=== PATIENT | male | born 1960 | race African-American/Black ===

== ENCOUNTER 2017-02-13 07:56 | Emergency (ER) | payer MEDICARE, MEDICAID ==
[~2017-02-13] VITALS: Ht 180.3 cm; Wt 104.3 kg
[2017-02-13 07:59] VITALS: BP 124/79
[2017-02-13] MEDS ORDERED: DiphenhydrAMINE 50mg/ml Inj IM ONE (08:15)
[2017-02-13] MEDS ORDERED: Ketorolac 60mg Inj IM ONE (08:15)
--- NOTE | 2017-02-13 08:15 | Emergency Room Report ---
History of Present Illness General Chief Complaint: General Complaint Source: Patient, Caregiver Present Illness HPI Patient is a 56-year-old male presented after increased difficulty moving his jaw. Patient prior history of similar symptoms many years ago. The patient denies recent trauma however he has a seizure disorder. Patient had prior head trauma many years ago. He takes Keppra as well as Tegretol for his seizures. He had been taking multiple medications for seizure control and had not been having seizures for the past few months. 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 He denies recent fever. He reported having a mild sore throat. Allergies: Coded Allergies: No Known Allergies (Unverified , 02/13/17) Patient History Past Medical History: see triage record, seizures Reviewed Nursing Documentation: PMH: Agreed, PSxH: Agreed Nursing Documentation-PMH Past Medical History: No History, Except For Hx Neurological Problems: Yes - HX OF BRAIN INJURY Hx Seizures: Yes Review of Systems All Other Systems: negative except mentioned in HPI Physical Exam Vital Signs Date Time Temp Pulse Resp B/P Pulse Ox O2 Delivery O2 Flow Rate FiO2 02/13/17 07:59 97.3 73 20 124/79 96 Room Air General Appearance: well appearing, no apparent distress, alert, GCS 15 Head: normocephalic, atraumatic ENT: hearing grossly normal, normal voice, other - decreased range of motion, no mandibular swelling, able to move jaw side to side. Neck: full range of motion, supple Respiratory: no respiratory distress, speaking full sentences Musculoskeletal: no calf tenderness Neurologic: normal gait Psychiatric: mood/affect normal Skin: no rash Medical Decision Making Diagnostic Impression: Primary Impression: Dental infection ER Course The patient is a 52-year-old male presented after having difficulty opening his mouth. Differential diagnosis included wasn't limited to jaw dislocation, tetanus, dystonic reaction, dental infection and among others. Because of complexity of patient's case laboratory testing and imaging studies were ordered. Laboratory testing showed normal white blood count. Patient was noted to have no change in symptoms after IV Benadryl. A CT of the facial bones read by radiology showed a left lower dental caries with possible tooth abscess without evidence of the mandibular or temporomandibular joint abnormality. The patient was given IM penicillin for a dental infection. The patient was advised followup with a dentist. Patient is advised to return if you having worsening pain, difficulty swallowing trouble breathing or other concerns. Last Vital Signs Date Time Temp Pulse Resp B/P Pulse Ox O2 Delivery O2 Flow Rate FiO2 02/13/17 07:59 97.3 73 20 124/79 96 Room Air Status: improved Disposition: HOME, SELF-CARE Condition: Stable Scripts Ibuprofen* (MOTRIN*) 600 Mg Tablet 600 MG ORAL Q8H Y for For Pain, #30 TAB 0 Refills Prov: Marcus Buckner 02/13/17 Marcus Buckner February 13, 2017 08:15
[2017-02-13] MEDS ORDERED: LEVETIRACETAM500 MG ORAL ×2 (08:31→08:33)
[2017-02-13] MEDS ORDERED: CARBAMAZEPINE200 MG ORAL ×2 (08:33)
[2017-02-13] MEDS ORDERED: MULTIVITAMINS1 EAC8 ORAL (08:33)
[2017-02-13] MEDS ORDERED: VITAMIN D22000 UNIT PO (08:35)
--- NOTE | 2017-02-13 09:30 | Diagnostic Imaging Report ---
Indications: Mandibular pain, decreased range of motion: History seizure disorder Technique: Continuous helical CT imaging of the face was performed with automatic exposure control on a Siemens sensation [address] scanner. Axial and coronal images were reconstructed at 3 mm slice thickness. CTDI volume(s): 28.2 mGy Total DLP: 59 mGy-cm Findings: Comparison: None No fracture identified. Bilateral temporomandibular joints normally aligned and without significant degenerative change or other chronic abnormality. Paranasal sinuses, bilateral mastoid air cells clear. Orbital anatomy intact bilaterally. Superficial soft tissues unremarkable. Left lower second molar demonstrates defect in crown, lucency surrounding its root, and defect in the overlying mandibular cortex. IMPRESSION: Left lower dental caries as described with probable tooth abscess No other evidence of mandibular/temporomandibular joint abnormality This correlates with [facility] preliminary report.
[2017-02-13 10:15] VITALS: BP 115/76
[2017-02-13] MEDS ORDERED: Bicillin LA 1.2 Million Units Syr IM ONE (10:45)
[2017-02-13] MEDS ORDERED: IBUPROFEN600 MG ORAL (10:55)
[2017-02-13 11:27] VITALS: BP 116/77
== END 2017-02-13 11:33 | disposition home or self-care (01) ==
LOC: EMR 08:24
DX: K04.7 Periapical abscess without sinus (principal); Z87.820 Personal history of traumatic brain injury; Z86.69 Personal history of other diseases of the nervous system and sense organs
CPT/HCPCS: 70486; 96372; 99284; J0570; J1200; J0561

== ENCOUNTER 2018-08-21 15:40 | Emergency (ER) | payer MEDICARE, MEDICAID ==
[~2018-08-21] VITALS: Ht 180.3 cm; Wt 113.4 kg
[~2018-08-21 15:40] MED LIST: CARBAMAZEPINE200 MG ORAL; IBUPROFEN600 MG ORAL; LEVETIRACETAM500 MG ORAL; MULTIVITAMINS1 EAC8 ORAL; VITAMIN D22000 UNIT PO
[2018-08-21] MEDS ORDERED: FUROSEMIDE40 MG ORAL (16:01)
[2018-08-21] MEDS ORDERED: SPIRONOLACTONE25 MG ORAL (16:01)
[2018-08-21] MEDS ORDERED: KEPPRA1000 MG ORAL (16:01)
[2018-08-21] MEDS ORDERED: VITAMIN D22000 UNIT PO (16:01)
[2018-08-21] MEDS ORDERED: FUROSEMIDE20 M1 ORAL (16:01)
--- NOTE | 2018-08-21 17:09 | Diagnostic Imaging Report ---
Indications: Altered mental status Technique: Spiral acquisitions obtained through the brain. Angled axial and coronal 5 x 5 mm slices were reconstructed. Total dose length product 1432.39 mGycm. CTDI vol(s) 70.38 mGy. 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 There is also a small focus of encephalomalacia in the high right parasagittal frontal lobe. Another focus of cortical encephalomalacia is seen in the high parasagittal posterior frontal lobe, and another in the high lateral left parietal cortex. There is mild age-related enlargement of the ventricles. There is suggestion of encephalomalacia of the left temporal lobe with ex vacuo dilatation of the temporal horn of the left lateral ventricle. No acute intracranial hemorrhage nor edema, mass effect, nor midline shift. Visualized orbits are unremarkable. There is ethmoid sinus disease. The mastoids are clear. The calvarium is intact. Findings: Negative for acute intracranial bleed or mass effect Multifocal encephalomalacia, as described above, consistent with prior insult either ischemic or otherwise. Correlate with clinical history Ethmoid sinus mucosal disease incidentally noted Impression: The CT scanner at [facility] is accredited by the [employer] and the scans are performed using protocols designed to limit radiation exposure to as low as reasonably achievable to attain images of sufficient resolution adequate for diagnostic evaluation.
[2018-08-21 17:11] VITALS: BP 118/72
[2018-08-21 17:20] LABS: EOSINOPHILS % (AUTO) 2.5 % (0.0-3.0); HEMATOCRIT 44.5 % (42.0-52.0); HEMOGLOBIN 14.4 G/DL (14.2-18.0); LYMPHOCYTES % (AUTO) 30.8 % (20.0-45.0); MEAN CORPUSCULAR VOLUME 83 FL (80-99); MONOCYTES % (AUTO) 9.5 % (1.0-10.0); NEUTROPHILS % (AUTO) 56.2 % (45.0-75.0); PLATELET COUNT 209 K/UL (150-450); RED BLOOD COUNT 5.33 M/UL (4.70-6.10); RED CELL DISTRIBUTION WIDTH 12.2 % (11.6-14.8); WHITE BLOOD COUNT 6.3 K/UL (4.8-10.8)
[2018-08-21 17:42] LABS: AMMONIA 23 umol/L (11-32); ANION GAP 7 mmol/L (5-15); BLOOD UREA NITROGEN 13 mg/dL (7-18); CALCIUM 8.2 MG/DL (8.5-10.1); CARBON DIOXIDE 30 MMOL/L (21-32); CHLORIDE 104 MMOL/L (98-107); CREATININE 1.2 MG/DL (0.55-1.30); POTASSIUM 4.2 MMOL/L (3.5-5.1); SODIUM 141 MMOL/L (136-145)
[2018-08-21 17:45] LABS: ALANINE AMINOTRANSFERASE 31 U/L (12-78); ALBUMIN 3.4 G/DL (3.4-5.0); ALBUMIN/GLOBULIN RATIO 0.8 (1.0-2.7); ALKALINE PHOSPHATASE 94 U/L (46-116); ASPARTATE AMINO TRANSFERASE 20 U/L (15-37); BILIRUBIN,TOTAL 0.2 MG/DL (0.2-1.0)
[2018-08-21] MEDS ORDERED: VITAMIN D250000 UNI1 ORAL (18:01)
[2018-08-21 18:05] VITALS: BP 109/74
[2018-08-21 18:24] VITALS: BP 109/74
--- NOTE | 2018-08-21 18:30 | Emergency Room Report ---
History of Present Illness General Chief Complaint: Generalized Weakness Source: Family Member Present Illness HPI 58-year-old male presents ED for evaluation. Sister at bedside states that patient has been increasingly drowsy for the last 2 weeks with very low energy. States that prior to onset of symptoms he was "getting over a cold". Was seen by PMD at that time and flu shot was deferred until patient recovered. Patient states he feels tired. Denies any headache. Denies chest pain or shortness of breath. Denies fevers or chills. History of seizures and is on Keppra and Tegretol. States there is no change to his dosages. Denies drug use or alcohol use. No other aggravating relieving factors. Denies any other associated symptoms Allergies: Coded Allergies: No Known Allergies (Unverified , 02/13/17) Patient History Past Medical History: seizures Past Surgical History: other - TBI Pertinent Family History: none Social History: Denies: smoking, alcohol use, drug use Immunizations: UTD Reviewed Nursing Documentation: PMH: Agreed; PSxH: Agreed Nursing Documentation-PMH Past Medical History: No History, Except For Hx Neurological Problems: Yes - HX OF BRAIN INJURY Hx Seizures: Yes Review of Systems All Other Systems: negative except mentioned in HPI Physical Exam Vital Signs Date Time Temp Pulse Resp B/P (MAP) Pulse Ox O2 Delivery O2 Flow Rate FiO2 08/21/18 15:54 97.2 70 14 118/72 97 Room Air Sp02 EP Interpretation: reviewed, normal General Appearance: no apparent distress, alert, GCS 15, non-toxic, lethargic Head: normocephalic, atraumatic Eyes: bilateral eye normal inspection, bilateral eye PERRL ENT: hearing grossly normal, normal pharynx, no angioedema, normal voice Neck: full range of motion, supple/symm/no masses Respiratory: chest non-tender, lungs clear, normal breath sounds, speaking full sentences Cardiovascular #1: regular rate, rhythm, no edema Cardiovascular #2: 2+ carotid (R), 2+ carotid (L), 2+ radial (R), 2+ radial (L) , 2+ dorsalis pedis (R), 2+ dorsalis pedis (L) Gastrointestinal: normal bowel sounds, non tender, soft, non-distended, no guarding, no rebound Rectal: deferred Genitourinary: normal inspection, no CVA tenderness Musculoskeletal: back normal, gait/station normal, normal range of motion, non- tender Neurologic: oriented x3, responsive, motor strength/tone normal, sensory intact , speech normal, other - lethargy Psychiatric: judgement/insight normal, memory normal, mood/affect normal, no suicidal/homicidal ideation Reflexes: 3+ bicep (R), 3+ bicep (L), 3+ tricep (R), 3+ tricep (L), 3+ knee (R) , 3+ knee (L) Skin: normal color, no rash, warm/dry, well hydrated Lymphatic: no adenopathy Medical Decision Making Diagnostic Impression: Primary Impression: Lethargy Additional Impression: Episode of generalized weakness ER Course Hospital Course 58-year-old male presents with increased lethargy 2 weeks. h/o seizures Differential diagnoses include: Psychosis, EtOH, drug abuse Clinical course patient placed on stretcher. On residential monitor. After initial history and physical ordered labs, IV fluids, CT brain. Labs reviewed-electrolytes okay, no leukocytosis, hemoglobin/hematocrit stable, ETOH negative, UDS negative, ammonia ok. 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 Vital stable. Normal lab workup. CT negative. I offered option for admission but patient and family state that they would like to be discharged and will follow-up with PMD. i. I feel this is a highly complex case requiring extensive working including EKG/Rhythm strip, Xray/CT/US, Blood/urine lab work, repeat exams while in ED, and administration of strong opiates/narcotics for pain control, admission to hospital or close patient follow up. Diagnosis - lethargy, episode of generalized weakness Stable and discharged to home. Followup with PMD. Return to ED if symptoms recur or worsen Labs Test 08/21/18 17:00 08/21/18 17:09 White Blood Count 6.3 K/UL (4.8-10.8) Red Blood Count 5.33 M/UL (4.70-6.10) Hemoglobin 14.4 G/DL (14.2-18.0) Hematocrit 44.5 % (42.0-52.0) Mean Corpuscular Volume 83 FL (80-99) Mean Corpuscular Hemoglobin 27.0 PG (27.0-31.0) Mean Corpuscular Hemoglobin Concent 32.3 G/DL (32.0-36.0) Red Cell Distribution Width 12.2 % (11.6-14.8) Platelet Count 209 K/UL (150-450) Mean Platelet Volume 6.2 FL (6.5-10.1) Neutrophils (%) (Auto) 56.2 % (45.0-75.0) Lymphocytes (%) (Auto) 30.8 % (20.0-45.0) Monocytes (%) (Auto) 9.5 % (1.0-10.0) Eosinophils (%) (Auto) 2.5 % (0.0-3.0) Basophils (%) (Auto) 1.0 % (0.0-2.0) Sodium Level 141 MMOL/L (136-145) Potassium Level 4.2 MMOL/L (3.5-5.1) Chloride Level 104 MMOL/L (98-107) Carbon Dioxide Level 30 MMOL/L (21-32) Anion Gap 7 mmol/L (5-15) Blood Urea Nitrogen 13 mg/dL (7-18) Creatinine 1.2 MG/DL (0.55-1.30) Estimat Glomerular Filtration Rate > 60 mL/min (>60) Glucose Level 94 MG/DL (74-106) Calcium Level 8.2 MG/DL (8.5-10.1) Total Bilirubin 0.2 MG/DL (0.2-1.0) Aspartate Amino Transf (AST/SGOT) 20 U/L (15-37) Alanine Aminotransferase (ALT/SGPT) 31 U/L (12-78) Alkaline Phosphatase 94 U/L (46-116) Ammonia 23 umol/L (11-32) Total Protein 7.7 G/DL (6.4-8.2) Albumin 3.4 G/DL (3.4-5.0) Globulin 4.3 g/dL Albumin/Globulin Ratio 0.8 (1.0-2.7) Salicylates Level 0.6 ug/mL (2.8-20) Acetaminophen Level < 2 MCG/ML (10-30) Serum Alcohol < 3 mg/dL Urine Opiates Screen Negative (NEGATIVE) Urine Barbiturates Screen Negative (NEGATIVE) Phencyclidine (PCP) Screen Negative (NEGATIVE) Urine Amphetamines Screen Negative (NEGATIVE) Urine Benzodiazepines Screen Negative (NEGATIVE) Urine Cocaine Screen Negative (NEGATIVE) Urine Marijuana (THC) Screen Negative (NEGATIVE) CT/MRI/US Diagnostic Results CT/MRI/US Diagnostic Results : Imaging Test Ordered: CT Head Impression Negative for acute intracranial bleed or mass effect Multifocal encephalomalacia, as described above, consistent with prior insult either ischemic or otherwise. Last Vital Signs Date Time Temp Pulse Resp B/P (MAP) Pulse Ox O2 Delivery O2 Flow Rate FiO2 08/21/18 18:05 97.2 68 20 109/74 99 Room Air Status: improved Disposition: HOME, SELF-CARE Condition: Stable Patient Instructions: Mele Maurer MD Aug 21, 2018 18:30
== END 2018-08-21 18:26 | disposition home or self-care (01) ==
LOC: EMR 16:51
DX: R53.83 Other fatigue (principal); R53.1 Weakness; Z87.820 Personal history of traumatic brain injury
CPT/HCPCS: 70450; 80053; 80307; 82140; 85025; 86710; 96360; 99284; G0480; 80329

== ENCOUNTER 2019-08-09 08:51 | Observation (INO) | payer MEDICARE, MEDICAID ==
[~2019-08-09] VITALS: Ht 180.3 cm; Wt 108.9 kg
[~2019-08-09 08:51] MED LIST changes: +FUROSEMIDE20 M1 ORAL; +FUROSEMIDE40 MG ORAL; +KEPPRA1000 MG ORAL; +SPIRONOLACTONE25 MG ORAL; +VITAMIN D250000 UNI1 ORAL
[2019-08-09 08:56] VITALS: BP 118/82
--- NOTE | 2019-08-09 09:05 | NUR ---
ED Nurse Note: PT WALKED IN DUE TO RIGHT TOE LACERATION. PT TRIPPED AND FELL AND HIS BIG TOE WAS CUT IN THE CONCRETE STAIR. NOTED A SMALL LACERATION WITH CONTROLLED BLEEDING WITH DRESSING IN PLACE. UNABLE TO REMEMBER LAST TETANUS SHOT. AAOX4 AND AMBULATORY. FAMILY MEMBE RAT THE BED SIDE.
[2019-08-09] MEDS ORDERED: Lidocaine 1% MPF 10mg/ml 5ml INJ ONE (09:15)
[2019-08-09] MEDS ORDERED: Tetanus/Diptheria/Pertussis IM ONE (09:15)
[2019-08-09] MEDS ORDERED: Bacitracin Oint UD TOPIC ONE (09:15)
[2019-08-09] MEDS ORDERED: Acetaminophen 500mg (ES) tab PO ONE (09:15)
--- NOTE | 2019-08-09 09:30 | NUR ---
ED Nurse Note: COLLECTED BLOOD THEN SENT.
[2019-08-09 09:43] LABS: BASOPHILS % (AUTO) 0.8 % (0.0-2.0); EOSINOPHILS % (AUTO) 2.7 % (0.0-3.0); HEMATOCRIT 45.3 % (42.0-52.0); HEMOGLOBIN 14.5 G/DL (14.2-18.0); LYMPHOCYTES % (AUTO) 26.1 % (20.0-45.0); MEAN CORPUSCULAR VOLUME 85 FL (80-99); MONOCYTES % (AUTO) 6.9 % (1.0-10.0); NEUTROPHILS % (AUTO) 63.5 % (45.0-75.0); PLATELET COUNT 262 K/UL (150-450); RED BLOOD COUNT 5.32 M/UL (4.70-6.10); RED CELL DISTRIBUTION WIDTH 12.3 % (11.6-14.8); WHITE BLOOD COUNT 6.1 K/UL (4.8-10.8)
[2019-08-09 10:01] LABS: ANION GAP 7 mmol/L (5-15); BLOOD UREA NITROGEN 12 mg/dL (7-18); CALCIUM 8.3 MG/DL (8.5-10.1); CARBON DIOXIDE 31 MMOL/L (21-32); CHLORIDE 104 MMOL/L (98-107); CREATININE 1.1 MG/DL (0.55-1.30); SODIUM 142 MMOL/L (136-145)
[2019-08-09 10:14] LABS: ALANINE AMINOTRANSFERASE 30 U/L (12-78); ALBUMIN 3.7 G/DL (3.4-5.0); ALBUMIN/GLOBULIN RATIO 0.9 (1.0-2.7); ALKALINE PHOSPHATASE 100 U/L (46-116); ASPARTATE AMINO TRANSFERASE 15 U/L (15-37); BILIRUBIN,TOTAL 0.2 MG/DL (0.2-1.0)
[2019-08-09] MEDS ORDERED: ceFAZolin 1gm/50ml Premix 50 ML IV ONE (10:30)
[2019-08-09 11:03] VITALS: BP 123/75
--- NOTE | 2019-08-09 12:00 | NUR ---
ED Nurse Note: WAITING FOR DR REHMAN TO SUTURE PT'S RIGHT BIG TOE LACERATION BEFORE PT GOES UP TO TELEMETRY UNIT.
--- NOTE | 2019-08-09 12:18 | Diagnostic Imaging Report ---
Indication: Right toe pain Comparison: None Findings: 3 views of the right forefoot obtained. There is a transverse fracture demonstrated at the base of the first distal phalange. The fracture is intra-articular and there is a small displaced fragment on the dorsal aspect of the distal phalangeal base. Soft tissue swelling noted. IMPRESSION: Acute fracture is described above
--- NOTE | 2019-08-09 12:50 | NUR ---
ED Nurse Note: CALLED FOR REPORT AND SPOKE TO MICHEL CONLEY OF TELEMETRY UNIT.
[2019-08-09 13:10] VITALS: BP 119/76
--- NOTE | 2019-08-09 13:55 | Emergency Room Report ---
History of Present Illness General Chief Complaint: Laceration Source: Patient, Family Member Present Illness HPI Patient presents after catching his toe while walking outside and shaving. He caught it on a piece of concrete. Caused him to fall. He denies syncope. Also he denies chest pain or palpitations. He has pain in the toe and there was minimal amount of bleeding. There is a laceration on the toe. He reports the pain 410, nonradiating, sharp and aching. The patient has a history of seizures. He is on Tegretol and Keppra. He denies having a seizure prior to the event, however his sister reports that he has petit mall seizures. No fevers, chills, sore throat, nausea, vomiting, diarrhea, dysuria, abdominal pain, shortness of breath, depression, anxiety, visual changes, dizziness, headache. Allergies: Coded Allergies: No Known Allergies (Unverified , 02/13/17) Patient History Past Medical History: see triage record Social History: Denies: smoking, alcohol use Social History Narrative here with sister - born [place] Reviewed Nursing Documentation: PMH: Agreed; PSxH: Agreed Nursing Documentation-PMH Past Medical History: No History, Except For Hx Neurological Problems: Yes - HX OF BRAIN INJURY Hx Seizures: Yes Review of Systems All Other Systems: negative except mentioned in HPI Physical Exam Vital Signs Date Time Temp Pulse Resp B/P (MAP) Pulse Ox O2 Delivery O2 Flow Rate FiO2 08/09/19 08:56 98.1 78 17 118/82 98 Room Air Sp02 EP Interpretation: reviewed, normal General Appearance: well appearing, no apparent distress, alert, GCS 15 Head: normocephalic, atraumatic Eyes: bilateral eye normal inspection, bilateral eye PERRL, bilateral eye EOMI ENT: moist mucus membranes - No lingual macerations Neck: supple, no bony tend Respiratory: chest non-tender, lungs clear, normal breath sounds Cardiovascular #1: regular rate, rhythm, no edema Cardiovascular #2: 2+ radial (R) Gastrointestinal: normal inspection, normal bowel sounds, non tender, no mass, non-distended, overweight Genitourinary: no CVA tenderness Musculoskeletal: back normal, normal range of motion, swelling, tender - Big toe Neurologic: alert, oriented x3, grossly normal Psychiatric: depressed affect Skin: laceration - Right great toe dorsum Procedures Laceration/Wound Repair Laceration/Wound Repair : Consent: Verbal Wound Location: lower extremity Wound's Depth, Shape: superficial Wound Length (cm): 3 Wound Explored: clean Irrigated w/ Saline (ccs): 30 Betadine Prep?: Yes Anesthesia: 1% Lidocaine Volume Anesthetic (ccs): 2 Wound Debrided: None Wound Repaired With: sutures Suture Size/Type: 5:0, proline Sterile Dressing Applied?: Yes Splint Applied?: No Patient Tolerated: Well Complications: None Medical Decision Making Diagnostic Impression: Primary Impression: Tegretol toxicity Qualified Codes: T42.1X1A - Poisoning by iminostilbenes, accidental ( unintentional), initial encounter Additional Impressions: Open fracture Laceration of right great toe Qualified Codes: S91.211A - Laceration without foreign body of right great toe with damage to nail, initial encounter ER Course Patient presents with a right great toe injury. He denies seizure and it is questionable whether he remembers all of the events of the fall. Differential includes unnoticed seizure, electrolyte imbalance, toe fracture amongst others. Evaluation with labs. CT the head is not indicated. X-ray of the great toe is indicated. Laceration repair indicated. EKG without injury. Chest x-ray no infiltrates. CBC and CMP unremarkable. Avulsion fracture great toe. Ancef ordered. To laceration repair. Elevated Tegretol level EKG ordered. Normal sinus rhythm with sinus arrhythmia rate of 65 nonacute changes Patient admitted to telemetry due to Tegretol toxicity. Continued antibiotics indicated. Laboratory Tests Test 08/09/19 09:20 White Blood Count 6.1 K/UL (4.8-10.8) Red Blood Count 5.32 M/UL (4.70-6.10) Hemoglobin 14.5 G/DL (14.2-18.0) Hematocrit 45.3 % (42.0-52.0) Mean Corpuscular Volume 85 FL (80-99) Mean Corpuscular Hemoglobin 27.2 PG (27.0-31.0) Mean Corpuscular Hemoglobin Concent 32.0 G/DL (32.0-36.0) Red Cell Distribution Width 12.3 % (11.6-14.8) Platelet Count 262 K/UL (150-450) Mean Platelet Volume 5.2 FL (6.5-10.1) L Neutrophils (%) (Auto) 63.5 % (45.0-75.0) Lymphocytes (%) (Auto) 26.1 % (20.0-45.0) Monocytes (%) (Auto) 6.9 % (1.0-10.0) Eosinophils (%) (Auto) 2.7 % (0.0-3.0) Basophils (%) (Auto) 0.8 % (0.0-2.0) Prothrombin Time 10.2 SEC (9.30-11.50) Prothrombin Time INR 1.0 (0.9-1.1) PTT 29 SEC (23-33) Sodium Level 142 MMOL/L (136-145) Potassium Level 4.0 MMOL/L (3.5-5.1) Chloride Level 104 MMOL/L (98-107) Carbon Dioxide Level 31 MMOL/L (21-32) Anion Gap 7 mmol/L (5-15) Blood Urea Nitrogen 12 mg/dL (7-18) Creatinine 1.1 MG/DL (0.55-1.30) Estimate Glomerular Filtration Rate > 60 mL/min (>60) Glucose Level 99 MG/DL (74-106) Calcium Level 8.3 MG/DL (8.5-10.1) L Total Bilirubin 0.2 MG/DL (0.2-1.0) Aspartate Amino Transferase (AST) 15 U/L (15-37) Alanine Aminotransferase (ALT) 30 U/L (12-78) Alkaline Phosphatase 100 U/L (46-116) Total Protein 7.7 G/DL (6.4-8.2) Albumin 3.7 G/DL (3.4-5.0) Globulin 4.0 g/dL Albumin/Globulin Ratio 0.9 (1.0-2.7) L Carbamazepine (Tegretol) Level 12.2 ug/mL (4.0-12.0) *H EKG Diagnostic Results Rate: normal Rhythm: NSR ST Segments: no acute changes Rhythm Strip Diag. Results EP Interpretation: yes Rhythm: NSR, no PVC's, no ectopy Other X-Ray Diagnostic Results Other X-Ray Diagnostic Results : X-Ray ordered: R foot # of Views/Limited Vs Complete: 3 View Indication: Other Interpretation: other - fx Impression: Other Electronically Signed by: Electronically signed by Eugene Damian MD Last Vital Signs Date Time Temp Pulse Resp B/P (MAP) Pulse Ox O2 Delivery O2 Flow Rate FiO2 08/09/19 21:00 Room Air 08/09/19 20:00 98.1 76 18 131/70 (90) 94 Status: improved Disposition: PLACE IN OBSERVATION Condition: Serious Scripts Carbamazepine* (CARBAMAZEPINE*) 200 Mg Tablet 200 MG ORAL THREE TIMES A DAY for 30 Days, TAB Prov: Partha Bentley MD 08/10/19 Referrals: NON PHYSICIAN (PCP) Eugene Damian MD Aug 09, 2019 13:55
[2019-08-09] MEDS ORDERED: LORazepam Inj 2mg/ml 1ml IV PRN (14:00)
[2019-08-09] MEDS ORDERED: Morphine Sulfate 2mg/ml Inj(IV/IM USE ONLY) IVP PRN (14:00)
--- NOTE | 2019-08-09 14:08 | NUR ---
ED Nurse Note: RIGHT BIG TOE LACERATION SUTURED BY DR REHMAN AND CLEANSED BY ASHLEY.
--- NOTE | 2019-08-09 14:22 | NUR ---
ED Nurse Note: PT TRANSPORTED TO TELEMETRY UNIT WITH HIS BELONGINGS. OM TREE PRUNER ASSISTED BY RN AND ELECTORAL OFFICER.
--- NOTE | 2019-08-09 14:30 | NUR ---
NURSE NOTES: Received patient from ED. transported via [place], accompanied by sister. patient is AAOX4. S/P fall with laceration on his right toe. noted with sutures that is CDI. noted with old dry blood. SKIDDER. patient wearing right foot brace. VSS. oriented to room, call siu within patients reached. patients belongings was brought home by his sister. fall and seizure precautions in place. bed rails X2 up and padded. bed locked to lowest position alarm activated. Admisson orders received from Dr. Bentley. Will follow.
[2019-08-09] MEDS: D5 1/2NS 1,000 ML IV SCH (15:30)
--- NOTE | 2019-08-09 15:38 | Consultation ---
History of Present Illness General Date patient seen: Aug 09, 2019 Chief Complaint: Laceration Present Illness HPI 59 year old male with hx of seizures presented to ED b/o laceration and fracture of the right first toe. The laceration was repaired in the emergency room. The patient was found to have a Tegretol level of 12.2. The patient is admitted for a slip and fall injury, fractured and lacerated right first toe, and Tegretol toxicity. Allergies: Coded Allergies: No Known Allergies (Unverified , 02/13/17) Medication History Scheduled Carbamazepine* (Carbamazepine*), 200 MG ORAL FOUR TIMES A DAY, (Reported) Ergocalciferol (Vitamin D2)* (Vitamin D*), 50,000 UNIT ORAL ONCE A WEEK, ( Reported) Furosemide* (Lasix*), 20 MG ORAL BID, (Reported) Levetiracetam (Keppra), 1,000 MG ORAL TID, (Reported) Multivitamin With Minerals (Multivitamins With Minerals*), 1 TAB ORAL DAILY, ( Reported) Spironolactone* (Aldactone*), 25 MG ORAL DAILY, (Reported) Patient History Healthcare decision maker Resuscitation status Advanced Directive on File Past Medical/Surgical History Past Medical/Surgical History: (1) Epilepsy Review of Systems All Other Systems: negative except mentioned in HPI Physical Exam General Appearance: WD/WN Lines, tubes and drains: peripheral HEENT: normocephalic, atraumatic Neck: non-tender, normal alignment Respiratory/Chest: chest wall non-tender, lungs clear Abdomen: normal bowel sounds, non tender Genitourinary/Rectal: normal rectal exam Last 24 Hour Vital Signs Date Time Temp Pulse Resp B/P (MAP) Pulse Ox O2 Delivery O2 Flow Rate FiO2 08/09/19 14:22 98.2 82 16 121/70 97 Room Air 08/09/19 13:10 98.6 79 18 119/76 100 Room Air 08/09/19 11:03 98.4 84 16 123/75 99 Room Air 08/09/19 09:51 98.4 08/09/19 08:56 98.1 78 17 118/82 (94) 98 Room Air 08/09/19 08:56 98.1 78 17 118/82 98 Room Air Laboratory Tests Test 08/09/19 09:20 White Blood Count 6.1 K/UL (4.8-10.8) Red Blood Count 5.32 M/UL (4.70-6.10) Hemoglobin 14.5 G/DL (14.2-18.0) Hematocrit 45.3 % (42.0-52.0) Mean Corpuscular Volume 85 FL (80-99) Mean Corpuscular Hemoglobin 27.2 PG (27.0-31.0) Mean Corpuscular Hemoglobin Concent 32.0 G/DL (32.0-36.0) Red Cell Distribution Width 12.3 % (11.6-14.8) Platelet Count 262 K/UL (150-450) Mean Platelet Volume 5.2 FL (6.5-10.1) L Neutrophils (%) (Auto) 63.5 % (45.0-75.0) Lymphocytes (%) (Auto) 26.1 % (20.0-45.0) Monocytes (%) (Auto) 6.9 % (1.0-10.0) Eosinophils (%) (Auto) 2.7 % (0.0-3.0) Basophils (%) (Auto) 0.8 % (0.0-2.0) Prothrombin Time 10.2 SEC (9.30-11.50) Prothromb Time International Ratio 1.0 (0.9-1.1) Activated Partial Thromboplast Time 29 SEC (23-33) Sodium Level 142 MMOL/L (136-145) Potassium Level 4.0 MMOL/L (3.5-5.1) Chloride Level 104 MMOL/L (98-107) Carbon Dioxide Level 31 MMOL/L (21-32) Anion Gap 7 mmol/L (5-15) Blood Urea Nitrogen 12 mg/dL (7-18) Creatinine 1.1 MG/DL (0.55-1.30) Estimat Glomerular Filtration Rate > 60 mL/min (>60) Glucose Level 99 MG/DL (74-106) Calcium Level 8.3 MG/DL (8.5-10.1) L Total Bilirubin 0.2 MG/DL (0.2-1.0) Aspartate Amino Transf (AST/SGOT) 15 U/L (15-37) Alanine Aminotransferase (ALT/SGPT) 30 U/L (12-78) Alkaline Phosphatase 100 U/L (46-116) Total Protein 7.7 G/DL (6.4-8.2) Albumin 3.7 G/DL (3.4-5.0) Globulin 4.0 g/dL Albumin/Globulin Ratio 0.9 (1.0-2.7) L Carbamazepine (Tegretol) Level 12.2 ug/mL (4.0-12.0) *H Height (Feet): 5 Height (Inches): 11.00 Weight (Pounds): 240 Medications Current Medications Medications (Trade) Dose Ordered Sig/Marylin Route PRN Reason Start Time Stop Time Status Last Admin Dose Admin Dextrose (Dextrose 50%) 25 ml Q30M PRN IV Hypoglycemia 08/09/19 14:00 09/08/19 13:59 Dextrose (Dextrose 50%) 50 ml Q30MIN PRN IV Hypoglycemia 08/09/19 14:00 09/08/19 13:59 Dextrose/Sodium Chloride 1,000 ml @ 50 mls/hr Q20H IV 08/09/19 14:00 09/08/19 13:59 Heparin Sodium (Porcine) (Heparin 5000 units/ml) 5,000 units EVERY 12 HOURS SUBQ 08/09/19 21:00 09/08/19 20:59 Levetiracetam (Keppra) 1,000 mg TID ORAL 08/09/19 18:00 09/08/19 17:59 Lorazepam (Ativan 2mg/ml 1ml) 0.5 mg Q4H PRN IV For Anxiety 08/09/19 14:00 08/16/19 13:59 Morphine Sulfate (Morphine Sulfate) 1 mg Q4H PRN IVP For Pain 08/09/19 14:00 08/16/19 13:59 Ondansetron HCl (Zofran) 4 mg Q6H PRN IVP Nausea & Vomiting 08/09/19 14:00 09/08/19 13:59 Assessment/Plan Problem List: (1) Acute encephalopathy ICD Codes: G93.40 - Encephalopathy, unspecified SNOMED: 57975758, [id number] (2) Tegretol toxicity ICD Codes: T42.1X1A - Poisoning by iminostilbenes, accidental (unintentional), initial encounter SNOMED: [id number] Qualifiers: Qualified Codes: T42.1X1A - Poisoning by iminostilbenes, accidental ( unintentional), initial encounter Assessment/Plan: keep in telemetry check tegretol level Partha Bentley MD Aug 09, 2019 15:38
--- NOTE | 2019-08-09 17:08 | History & Physical ---
History and Physical History & Physicial Dictated for Int Med-Dr Christian no. [id number]. Ed Rodriguez MD Aug 09, 2019 17:08
--- NOTE | 2019-08-09 19:26 | NUR ---
HAND-OFF: Report given to Susy Pascal. Patient satbel plan of care endorsed.
--- NOTE | 2019-08-09 19:30 | NUR ---
NURSE NOTES: Received patient from JARVIS AKERS, in stable condition, AOx3, denies pain, right toe laceration s/p sutures, minimal bleeding noted.IV site on right AC g20, patent, asymptomatic, bed low&locked, side rails upx3, call light within reach, sister at bedside, will continue to monitor and reassess
[2019-08-09 20:00] VITALS: BP 131/70
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
[2019-08-09] MEDS: Heparin 5000 units/ml inj SUBQ SCH (20:57)
[2019-08-10] VITALS: BP 142/73
[2019-08-10 04:00] VITALS: BP 121/86
[2019-08-10 06:44] LABS: BASOPHILS % (AUTO) 1.2 % (0.0-2.0); EOSINOPHILS % (AUTO) 3.4 % (0.0-3.0); HEMATOCRIT 43.6 % (42.0-52.0); HEMOGLOBIN 14.2 G/DL (14.2-18.0); LYMPHOCYTES % (AUTO) 25.6 % (20.0-45.0); MEAN CORPUSCULAR VOLUME 85 FL (80-99); MONOCYTES % (AUTO) 8.2 % (1.0-10.0); NEUTROPHILS % (AUTO) 61.6 % (45.0-75.0); PLATELET COUNT 256 K/UL (150-450); RED BLOOD COUNT 5.14 M/UL (4.70-6.10); RED CELL DISTRIBUTION WIDTH 12.2 % (11.6-14.8); WHITE BLOOD COUNT 6.9 K/UL (4.8-10.8)
[2019-08-10 07:16] LABS: ALANINE AMINOTRANSFERASE 25 U/L (12-78); ALBUMIN 3.4 G/DL (3.4-5.0); ALBUMIN/GLOBULIN RATIO 0.9 (1.0-2.7); ALKALINE PHOSPHATASE 91 U/L (46-116); ANION GAP 8 mmol/L (5-15); ASPARTATE AMINO TRANSFERASE 14 U/L (15-37); BILIRUBIN,TOTAL 0.3 MG/DL (0.2-1.0); BLOOD UREA NITROGEN 11 mg/dL (7-18); CARBON DIOXIDE 26 MMOL/L (21-32); CHLORIDE 106 MMOL/L (98-107); POTASSIUM 4.1 MMOL/L (3.5-5.1); SODIUM 140 MMOL/L (136-145)
--- NOTE | 2019-08-10 07:28 | NUR ---
HAND-OFF: Report given to JARVIS Melissa, patient in stable condition, plan of care endorsed.
[2019-08-10 07:50] VITALS: BP 130/86
[2019-08-10] MEDS: Heparin 5000 units/ml inj SUBQ SCH (08:20)
--- NOTE | 2019-08-10 08:49 | NUR ---
NURSE NOTES: pt awake alert, no distress. no sob. call light within reach. denies pain. will monitor.
[2019-08-10] MEDS: D5 1/2NS 1,000 ML IV SCH (10:13)
--- NOTE | 2019-08-10 11:44 | Pulmonology Progress Note ---
Assessment/Plan Problems: (1) Acute encephalopathy (2) Tegretol toxicity Assessment/Plan tegretol level therapeutic dc home today Subjective ROS Limited/Unobtainable: No Interval Events: doing better Allergies: Coded Allergies: No Known Allergies (Unverified , 02/13/17) Objective Last 24 Hour Vital Signs Date Time Temp Pulse Resp B/P (MAP) Pulse Ox O2 Delivery O2 Flow Rate FiO2 08/10/19 09:00 Room Air 08/10/19 07:50 97.5 78 16 130/86 (101) 93 08/10/19 07:31 85 08/10/19 04:00 71 08/10/19 04:00 97.5 77 16 121/86 (98) 93 08/10/19 00:00 98.3 77 12 142/73 (96) 96 08/10/19 00:00 79 08/09/19 21:00 Room Air 08/09/19 20:00 98.1 76 18 131/70 (90) 94 08/09/19 16:33 Room Air 08/09/19 16:00 71 08/09/19 14:43 61 08/09/19 14:22 98.2 82 16 121/70 97 Room Air 08/09/19 13:10 98.6 79 18 119/76 100 Room Air Intake and Output 08/09/19 08/10/19 19:00 07:00 Intake Total 900 ml Output Total 750 ml Balance 900 ml -750 ml Intake Oral 0 ml IV Total 100 ml Other 800 ml Output Urine Total 750 ml # Voids 3 General Appearance: WD/WN HEENT: normocephalic, atraumatic Respiratory/Chest: chest wall non-tender, lungs clear Cardiovascular: normal peripheral pulses, normal rate Abdomen: normal bowel sounds, soft, non tender Genitourinary: normal external genitalia Extremities: no clubbing Neurologic/Psychiatric: field reviewer II-XII grossly normal Lymphatic: no neck adenopathy Laboratory Tests 08/10/19 06:18: White Blood Count 6.9, Red Blood Count 5.14, Hemoglobin 14.2, Hematocrit 43.6, Mean Corpuscular Volume 85, Mean Corpuscular Hemoglobin 27.6, Mean Corpuscular Hemoglobin Concent 32.5, Red Cell Distribution Width 12.2, Platelet Count 256, Mean Platelet Volume 5.5L, Neutrophils (%) (Auto) 61.6, Lymphocytes (%) (Auto) 25.6, Monocytes (%) (Auto) 8.2, Eosinophils (%) (Auto) 3.4H, Basophils (%) (Auto ) 1.2, Sodium Level 140, Potassium Level 4.1, Chloride Level 106, Carbon Dioxide Level 26, Anion Gap 8, Blood Urea Nitrogen 11, Creatinine 1.0, Estimat Glomerular Filtration Rate > 60, Glucose Level 95, Calcium Level 8.0L, Total Bilirubin 0.3, Aspartate Amino Transf (AST/SGOT) 14L, Alanine Aminotransferase ( ALT/SGPT) 25, Alkaline Phosphatase 91, Total Protein 7.3, Albumin 3.4, Globulin 3.9, Albumin/Globulin Ratio 0.9L, Carbamazepine (Tegretol) Level 11.0, Levetiracetam (Keppra) Level [Pending] Current Medications Medications (Trade) Dose Ordered Sig/Marylin Route PRN Reason Start Time Stop Time Status Last Admin Dose Admin Dextrose (Dextrose 50%) 25 ml Q30M PRN IV Hypoglycemia 08/09/19 14:00 09/08/19 13:59 Dextrose (Dextrose 50%) 50 ml Q30MIN PRN IV Hypoglycemia 08/09/19 14:00 09/08/19 13:59 Dextrose/Sodium Chloride 1,000 ml @ 50 mls/hr Q20H IV 08/09/19 14:00 09/08/19 13:59 08/10/19 10:13 Heparin Sodium (Porcine) (Heparin 5000 units/ml) 5,000 units EVERY 12 HOURS SUBQ 08/09/19 21:00 09/08/19 20:59 08/10/19 08:20 Levetiracetam (Keppra) 1,000 mg TID ORAL 08/09/19 18:00 09/08/19 17:59 08/10/19 08:20 Lorazepam (Ativan 2mg/ml 1ml) 0.5 mg Q4H PRN IV For Anxiety 08/09/19 14:00 08/16/19 13:59 Morphine Sulfate (Morphine Sulfate) 1 mg Q4H PRN IVP For Pain 08/09/19 14:00 08/16/19 13:59 Ondansetron HCl (Zofran) 4 mg Q6H PRN IVP Nausea & Vomiting 08/09/19 14:00 09/08/19 13:59 aPrtha Bentley MD Aug 10, 2019 11:44
[2019-08-10] MEDS ORDERED: CARBAMAZEPINE200 MG ORAL (11:47)
[2019-08-10 12:00] VITALS: BP 156/86
--- NOTE | 2019-08-10 12:25 | NUR ---
CASE MANAGEMENT:REVIEW 59 YR OLD MALE PRESENTED TO ER CC: RT TOE LACERATION SI: TEGRETOL TOXICITY.OPEN FRACTURE 98 78 17 118/82 98% ON RA TEGRETOL LEVEL(+) 12.2 IS: TdP IM X1 LIDOCAINE X1 TYLENOL X1 BACITRACIN TIO X1 IV ANCEF X1 : TO TELEMETRY UNIT
--- NOTE | 2019-08-10 12:31 | NUR ---
NURSE NOTES: iv removed no bleeding, tele monitor removed, all belongings w sister apolinar. discharge instructions rendered w verbalized understanding from patient and sister. orignal rx given to sister, copy in the chart pt left in stable condition Addendum: 08/10/19 at 1235 by JOJO BRAXTON RN changed right foot toe dressing , sutures intact on right 1st toe, no active bleeding, cleansed w ns pat dry , xeroform applied, covered with kerlix secured with tape, patient tolerated well
[2019-08-10] MEDS ORDERED: 1/2 NS 1000ml IV ONE (12:35)
[2019-08-10] MEDS ORDERED: NS 275ml ONE (12:35)
--- NOTE | 2019-08-10 15:16 | Discharge Summary ---
Discharge Summary Hospital Course Date of Admission Aug 09, 2019 at 10:53 Date of Discharge Aug 10, 2019 at 12:36 Admitting Diagnosis tegretal toxicity HPI Tristian Linares is a 59 year old male who was admitted on Aug 09, 2019 at 10:53 for Tegretal Toxicity Hospital Course Last 24 Hour Vital Signs Date Time Temp Pulse Resp B/P (MAP) Pulse Ox O2 Delivery O2 Flow Rate FiO2 08/10/19 12:00 97.5 80 16 156/86 (109) 93 08/10/19 09:00 Room Air 08/10/19 07:50 97.5 78 16 130/86 (101) 93 08/10/19 07:31 85 08/10/19 04:00 71 08/10/19 04:00 97.5 77 16 121/86 (98) 93 08/10/19 00:00 98.3 77 12 142/73 (96) 96 08/10/19 00:00 79 08/09/19 21:00 Room Air 08/09/19 20:00 98.1 76 18 131/70 (90) 94 08/09/19 16:33 Room Air 08/09/19 16:00 71 Discharge Discharge Disposition Patient was discharged Home, F/U with podiatry Ankur Christian MD Aug 10, 2019 15:16
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
--- NOTE | 2019-08-11 15:04 | Cardiology Report ---
APPROVED REPORT EKG Measurement Heart [id number] Normal sinus rhythm with sinus arrhythmia Normal ECG
== END 2019-08-10 12:36 | disposition home or self-care (01) ==
LOC: EMR 09:15 → EDBEDREQ 10:38 → 2E 10:53 → EDBEDREQ 11:45
DX: S92.401A Displaced unspecified fracture of right great toe, initial encounter for closed fracture (principal); T42.1X1A Poisoning by iminostilbenes, accidental (unintentional), initial encounter; S91.211A Laceration without foreign body of right great toe with damage to nail, initial encounter; G40.909 Epilepsy, unspecified, not intractable, without status epilepticus; G93.40 Encephalopathy, unspecified; W01.0XXA Fall on same level from slipping, tripping and stumbling without subsequent striking against object, initial encounter; Y92.9 Unspecified place or not applicable; Z79.899 Other long term (current) drug therapy; Z87.820 Personal history of traumatic brain injury; Z23 Encounter for immunization; I49.9 Cardiac arrhythmia, unspecified
CPT/HCPCS: 36415 ×2; 73660; 80053 ×2; 80156 ×2; 80299 ×2; 85025 ×2; 85610; 85730; 90471; 90715; 93005; 96365; 96375; 99284; G0378 ×2; J0690; J1644 ×2; J7050